=== PATIENT | male | born 1970 | race Caucasian/White ===

== ENCOUNTER 2018-08-17 09:47 | Day surgery (SDC) | payer OTHER ==
[~2018-08-17] VITALS: Ht 182.9 cm; Wt 136.4 kg
[~2018-08-17 09:47] MED LIST: ASPI-496 PO; CHOL10003 PO; FLAXSEED PO; LOSA50TA14 PO; PHEN37.53 PO; TADA5TAB2 PO; TESTOSTERONE IM
[2018-08-17] MEDS ORDERED: LACTATED RINGERS 1,000 ML IV SCH (10:14)
[2018-08-17] MEDS ORDERED: FENTANYL PF 250 MCG/5ML ONE (10:24)
[2018-08-17] MEDS ORDERED: MIDAZOLAM 1 MG/ML, 2ML ONE (10:24)
[2018-08-17] MEDS ORDERED: PROPOFOL 10 MG/ML, 20ML ONE (10:27)
[2018-08-17] MEDS ORDERED: ONDANSETRON 2MG/ML, 2ML ONE (10:27)
[2018-08-17] MEDS ORDERED: DEXAMETHASONE 4 MG/ML, 5ML ONE (10:27)
[2018-08-17] MEDS ORDERED: CIPROFLOXACIN/PMX 400MG/200ML 200 ML ONE (10:27)
[2018-08-17 10:41] VITALS: BP 162/98
[2018-08-17] MEDS ORDERED: GABAPENTIN 300 MG CAPSULE PO ONE (11:00)
[2018-08-17] MEDS ORDERED: ACETAMINOPHEN 500 MG TABLET PO ONE (11:00)
[2018-08-17] MEDS ORDERED: SCOPOLAMINE PATCH, 1.5MG PATCH.TD72 TD ONE (11:00)
[2018-08-17 11:35] LABS: ALANINE AMINOTRANSFERASE 43 U/L (12-78); ALBUMIN 3.6 g/dL (3.4-5.0); ANION GAP 5 mmol/L (5-15); CALCIUM 8.3 mg/dL (8.5-10.1); CHLORIDE 107 mmol/L (98-107); CREATININE 0.97 mg/dL (0.7-1.3)
[2018-08-17 11:38] LABS: ALKALINE PHOSPHATASE 45 U/L (45-117); BILIRUBIN,TOTAL 0.8 mg/dL (0.2-1.0); TOTAL PROTEIN 6.4 g/dL (6.4-8.2)
[2018-08-17] MEDS ORDERED: KETOROLAC 30 MG/1 ML ONE (11:56)
[2018-08-17] MEDS ORDERED: NEOSTIGMINE 1 MG/ML, 10ML ONE (11:56)
[2018-08-17] MEDS ORDERED: PHENYLEPHRINE 10 MG/ML ONE (11:56)
[2018-08-17] MEDS ORDERED: ROCURONIUM 10 MG/ML,10ML ONE (11:56)
[2018-08-17] MEDS ORDERED: GLYCOPYRROLATE 0.2MG/1ML, 5ML ONE (11:56)
[2018-08-17] MEDS ORDERED: VASOPRESSIN 20 UNIT/ML, 1ML ONE (11:56)
[2018-08-17] MEDS ORDERED: hydrALAzine 20 MG/ML, 1ML IV PRN (12:30)
[2018-08-17] MEDS ORDERED: MEPERIDINE/PF 25MG/0.5ML IVPush PRN (12:30)
[2018-08-17] MEDS ORDERED: PROMETHAZINE 25 MG/ML, 1ML IV PRN (12:30)
[2018-08-17] MEDS ORDERED: ALBUTEROL SULFATE 2.5 MG/3 ML NPPB PRN (12:30)
[2018-08-17] MEDS ORDERED: OXYcodone 5 MG/5 ML ORAL.SOL UDC PO PRN (12:30)
[2018-08-17] MEDS ORDERED: HYDROmorphone 2 MG/ML, 1ML IVPush PRN (12:30)
[2018-08-17] MEDS ORDERED: HALOPERIDOL 5 MG/ML IV PRN (12:30)
[2018-08-17] MEDS ORDERED: FENTANYL PF 100 MCG/2ML IV PRN (12:30)
[2018-08-17] MEDS ORDERED: SUGAMMADEX 200 MG/2 ML IVPush ONE (13:19)
[2018-08-17] MEDS ORDERED: OXYcodone/APAP 5/325MG TABLET PO PRN (13:30)
== END 2018-08-17 16:30 | disposition home or self-care (01) ==
LOC: OUT 09:47
PROVIDERS: ATTEND Urology
DX: N20.0 Calculus of kidney (principal); I10 Essential (primary) hypertension; G47.33 Obstructive sleep apnea (adult) (pediatric); Z91.040 Latex allergy status
CPT/HCPCS: 36415; 52353; 80053; 82360; 88300; C1758; C1769; J0744; J1100; J1885; J2250; J2370; J2405; J2704; J2710; J3010; J3490; J7120